=== PATIENT | female | born 1955 | race Caucasian/White ===

== ENCOUNTER → 2020-11-01 | Outpatient (CLI) | payer MEDICARE, OTHER ==
[~2020-11-01] MED LIST: BUDESONIDE0.5 MG/2 M NEB; CITALOPRAM HBR40 MG PO; IPRAT-ALBUT 0.5-3 ML NEB; LIORESAL TAB 1010 MG PO; MEDROL DOSEPAK 24 MG PO; NEBULIZER UNIT INH; NEXIUM40 MG PO; PRAVASTATIN SOD40 MG PO; TRAMADOL HCL50 MG PO; VISTARIL25 MG PO; ZITHROMAX250 MG PO
== END ==
LOC: HEART 5 14:49
DX: R06.00 Dyspnea, unspecified (principal)
CPT/HCPCS: 93306

== ENCOUNTER → 2020-12-12 | Outpatient (CLI) | payer MEDICARE, OTHER | LOC: EXRD 08:54 | DX: M81.0 Age-related osteoporosis without current pathological fracture (principal); M47.816 Spondylosis without myelopathy or radiculopathy, lumbar region | CPT/HCPCS: 72110 ==

== ENCOUNTER → 2020-12-13 | Outpatient (CLI) | payer MEDICARE, OTHER | LOC: HEART 5 08:59 | DX: R07.9 Chest pain, unspecified (principal) | CPT/HCPCS: 78452; A9502; J2785 ==

== ENCOUNTER 2021-04-03 10:06 | Observation (INO) | payer MEDICARE, OTHER ==
[~2021-04-03] VITALS: Ht 157.5 cm; Wt 90.7 kg
[2021-04-03 11:59] LABS: HEMOGLOBIN 13.4 gm/dl (12.3-15.3); RED BLOOD COUNT 4.97 M/UL (4.00-5.10); WHITE BLOOD COUNT 7.6 K/UL (4.5-11.0)
[2021-04-03 12:32] LABS: BUN/CREATININE RATIO 15 (0-10)
[2021-04-03] MEDS ORDERED: TRAMADOL HCL50 MG PO (21:53)
[2021-04-03] MEDS ORDERED: NEXIUM40 MG PO (21:53)
[2021-04-03] MEDS ORDERED: CITALOPRAM HBR40 MG PO (21:54)
[2021-04-03] MEDS ORDERED: VISTARIL25 MG PO (21:54)
[2021-04-03] MEDS ORDERED: PRAVASTATIN SOD40 MG PO (21:55)
[2021-04-03] MEDS ORDERED: LIORESAL TAB 1010 MG PO (21:55)
[2021-04-04 04:31] LABS: HEMOGLOBIN 12.6 gm/dl (12.3-15.3); RED BLOOD COUNT 4.65 M/UL (4.00-5.10); WHITE BLOOD COUNT 8.6 K/UL (4.5-11.0)
[2021-04-04 05:02] LABS: BUN/CREATININE RATIO 21 (0-10)
[2021-04-04] MEDS ORDERED: BUDESONIDE0.5 MG/2 M NEB (15:21)
[2021-04-04] MEDS ORDERED: MEDROL DOSEPAK 24 MG PO (15:21)
[2021-04-04] MEDS ORDERED: IPRAT-ALBUT 0.5-3 ML NEB (15:21)
[2021-04-04] MEDS ORDERED: ZITHROMAX250 MG PO (15:23)
[2021-04-04] MEDS ORDERED: NEBULIZER UNIT INH (15:29)
[2021-04-05 03:05] LABS: HEMOGLOBIN 11.4 gm/dl (12.3-15.3); RED BLOOD COUNT 4.3 M/UL (4.00-5.10)
[2021-04-05 03:07] LABS: WHITE BLOOD COUNT 15.7 K/UL (4.5-11.0)
[2021-04-05 03:45] LABS: BUN/CREATININE RATIO 31 (0-10)
== END 2021-04-05 11:46 | disposition home or self-care (01) ==
LOC: ER1 10:06 → CDU 19:22 → M/S 04-04 08:14
PROVIDERS: Emergency Medicine; Physician Assistant; ADMIT Internal Medicine
DX: J96.01 Acute respiratory failure with hypoxia (principal); J45.901 Unspecified asthma with (acute) exacerbation; K22.70 Barrett's esophagus without dysplasia; E78.5 Hyperlipidemia, unspecified; F32.9 Major depressive disorder, single episode, unspecified; D72.828 Other elevated white blood cell count; Z20.822 Contact with and (suspected) exposure to COVID-19; Z88.0 Allergy status to penicillin; Z88.1 Allergy status to other antibiotic agents; Z88.2 Allergy status to sulfonamides; Z88.5 Allergy status to narcotic agent; Z88.6 Allergy status to analgesic agent; Z79.891 Long term (current) use of opiate analgesic; Z79.899 Other long term (current) drug therapy
CPT/HCPCS: 0240U; 71045; 80048; 80053; 82550; 82553; 83735; 84484; 85025; 85379; 86140; 87040; 94640; 94664; 94760; 96365; 96366; 96374; 96375; 96376; 99285; G0378; J0456; J2930; J3475; J7030; J7070; Q0177

== ENCOUNTER → 2021-05-10 | Outpatient (CLI) | payer MEDICARE, OTHER | LOC: HEART 5 14:34 | DX: R06.02 Shortness of breath (principal); J45.909 Unspecified asthma, uncomplicated | CPT/HCPCS: 94010; 95012 ==

== ENCOUNTER → 2021-10-17 | Outpatient (CLI) | payer MEDICARE, OTHER | LOC: MRI 12:45 | DX: M47.816 Spondylosis without myelopathy or radiculopathy, lumbar region (principal); R29.898 Other symptoms and signs involving the musculoskeletal system; M51.36 Other intervertebral disc degeneration, lumbar region | CPT/HCPCS: 72148 ==

== ENCOUNTER 2022-02-14 11:15 | Inpatient (IN) | payer MEDICARE, OTHER ==
[~2022-02-14] VITALS: Ht 157.5 cm; Wt 66.7 kg
[~2022-02-14 11:15] MED LIST changes: -VISTARIL25 MG PO
[2022-02-14 12:26] LABS: HEMOGLOBIN 12.6 gm/dl (12.3-15.3); RED BLOOD COUNT 4.65 M/UL (4.00-5.10)
[2022-02-14 13:01] LABS: BUN/CREATININE RATIO 15 (0-10)
[2022-02-14] MEDS ORDERED: CRESTOR20 MG PO (17:03)
[2022-02-14] MEDS ORDERED: FAMOTIDINE40 MG PO (17:04)
[2022-02-14] MEDS ORDERED: VITAMIN C500 M4 PO (17:05)
[2022-02-14] MEDS ORDERED: CALCIUM 600 +1 EAC3 PO (17:05)
[2022-02-14] MEDS ORDERED: VITAMIN B-121000 MCG PO (17:05)
[2022-02-14 20:35] LABS: BORDETELLA PARAPERTUSSIS Not Detected (Not Detectd); BORDETELLA PERTUSSIS Not Detected (Not Detectd); CHLAMYDIA PNEUMONIAE Not Detected (Not Detectd); CORONAVIRUS HKU1 Not Detected (Not Detectd); CORONAVIRUS NL63 Not Detected (Not Detectd); CORONAVIRUS OC43 Not Detected (Not Detectd); CORONOAVIRUS 229E Not Detected (Not Detectd); HUMAN METAPNEUMOVIRUS Not Detected (Not Detectd); HUMAN RHINOVIRUS/ENTEROVIRUS Not Detected (Not Detectd); INFLUENZA A Not Detected (Not Detectd); INFLUENZA B Not Detected (Not Detectd); MYCOPLASMA PNEUMONIAE Not Detected (Not Detectd); PARAINFLUENZA VIRUS 1 Not Detected (Not Detectd); PARAINFLUENZA VIRUS 2 Not Detected (Not Detectd); PARAINFLUENZA VIRUS 3 Not Detected (Not Detectd); PARAINFLUENZA VIRUS 4 Not Detected (Not Detectd); RESPIRATORY SYNCYTIAL VIRUS Not Detected (Not Detectd)
[2022-02-14 21:46] LABS: SARS-CoV-2 NOT DETECTED (Not Detectd)
[2022-02-14] MEDS ORDERED: VISTARIL25 MG PO (21:54)
[2022-02-15 01:32] LABS: HEMOGLOBIN 11.9 gm/dl (12.3-15.3); RED BLOOD COUNT 4.43 M/UL (4.00-5.10)
[2022-02-15 02:42] LABS: BUN/CREATININE RATIO 18 (0-10)
[2022-02-16 06:27] LABS: HEMOGLOBIN 11.4 gm/dl (12.3-15.3); RED BLOOD COUNT 4.2 M/UL (4.00-5.10)
[2022-02-16 06:29] LABS: WHITE BLOOD COUNT 17.2 K/UL (4.5-11.0)
[2022-02-16 06:47] LABS: BUN/CREATININE RATIO 19 (0-10)
[2022-02-16] MEDS ORDERED: BROVANA15 MCG/2 M INH (09:44)
[2022-02-16] MEDS ORDERED: PREDINSONE (10:09)
[2022-02-16] MEDS ORDERED: [UNRECOGNIZED DRUG - OTHER] (11:23)
[2022-02-16] MEDS ORDERED: albuterol prn (11:23)
[2022-02-17 17:12] LABS: ORGANISM ID Not indicated. (.); SPECIMEN SOURCE Urine (.); STREPTOCOCCUS PNEUMONIAE AG Negative (Negative)
== END 2022-02-16 12:34 | disposition home or self-care (01) | DRG 189 ==
LOC: ER1 11:15 → CDU 16:19 → MED SURG 4 16:19
PROVIDERS: Physician Assistant; ADMIT Internal Medicine
DX: J96.01 Acute respiratory failure with hypoxia (principal); J45.901 Unspecified asthma with (acute) exacerbation; K51.90 Ulcerative colitis, unspecified, without complications; Z20.822 Contact with and (suspected) exposure to COVID-19; E78.5 Hyperlipidemia, unspecified; K22.70 Barrett's esophagus without dysplasia; G47.00 Insomnia, unspecified; F32.A Depression, unspecified; E66.01 Morbid (severe) obesity due to excess calories; J20.9 Acute bronchitis, unspecified; Z87.11 Personal history of peptic ulcer disease; Z68.35 Body mass index [BMI] 35.0-35.9, adult; Z90.49 Acquired absence of other specified parts of digestive tract; Z90.710 Acquired absence of both cervix and uterus; Z88.1 Allergy status to other antibiotic agents; Z88.0 Allergy status to penicillin
CPT/HCPCS: 0240U; 36415; 36600; 71045; 80048; 80053; 80307; 81001; 82550; 82553; 82785; 82803; 83540; 83550; 83605; 83735; 83880; 84484; 85025; 85027; 85379; 85652; 86140; 87040; 87070; 87205; 87278; 87633; 87899; 93005; 94640; 94664; 94760; 96374; 96375; 96376; 97161; 97166; 97535; 99285; J1650; J1956; J2920; J2930; J3475; Q0177

== ENCOUNTER → 2022-04-12 | Outpatient (CLI) | payer MEDICARE, OTHER ==
[~2022-04-12] MED LIST changes: +BROVANA15 MCG/2 M INH; +CALCIUM 600 +1 EAC3 PO; +CRESTOR20 MG PO; +FAMOTIDINE40 MG PO; +PREDINSONE; +VISTARIL25 MG PO; +VITAMIN B-121000 MCG PO; +VITAMIN C500 M4 PO; +[UNRECOGNIZED DRUG - OTHER]; +albuterol prn
== END ==
LOC: EXRD 13:33
DX: R06.09 Other forms of dyspnea (principal)
CPT/HCPCS: 94010; 95012